=== PATIENT | male | born 1960 | race Asian ===

== ENCOUNTER 2022-12-22 12:38 | Outpatient (CLI) | payer OTHER | END 2022-12-22 12:39 | disposition home or self-care (01) | LOC: BICCT 12:38 | PROVIDERS: ATTEND Neurological Surgery | DX: S32.011D Stable burst fracture of first lumbar vertebra, subsequent encounter for fracture with routine healing (principal); M48.061 Spinal stenosis, lumbar region without neurogenic claudication | CPT/HCPCS: 72131 ==